=== PATIENT | female | born 1960 | race Caucasian/White ===

== ENCOUNTER 2020-01-26 14:14 | Inpatient (IN) | payer MEDICARE, BC ==
[~2020-01-26] VITALS: Ht 170.2 cm; Wt 68.0 kg
--- NOTE | 2020-01-26 15:01 | NUR ---
BIBS TO ER BED 12. AAOX4. NOT IN RESP DISTRESS. AMBULATORY. CAME IN FOR FEELING DEPRESSED ABOUT HER MOTHER'S PASSING BACK IN OCTOBER. SINCE THEN SHE FEELS LOST. PT WISHES TO BE LIKE HER MOTHER BUT DENIES SUICIDAL NOR HOMICIDAL IDEATION. PT WANT OTHER TO KILL HER, SHE WANTS TO RECEIVED MEDICATION TO "PUT HER AWAY". WAS AT THE BEDSIDE FOR EVAL. ORDERS RECEIVED NOTED AND CARRIED OUT
[2020-01-26 15:04] LABS: BASOPHILS # (AUTO) 0.1 /CMM (0.0-0.2); BASOPHILS % (AUTO) 0.9 % (0.0-2.0); EOSINOPHILS % (AUTO) 1.4 % (0.0-6.0); HEMATOCRIT 40 % (33-45); HEMOGLOBIN 13.5 g/dL (11.5-14.8); LYMPHOCYTES # (AUTO) 3.8 /CMM (0.8-4.8); LYMPHOCYTES % (AUTO) 50.9 % (20.0-44.0); MEAN CORPUSCULAR HGB CONC 34 g/dl (31.0-36.0); MEAN CORPUSCULAR VOLUME 90 fL (82-100); MONOCYTES # (AUTO) 0.5 /CMM (0.1-1.30); MONOCYTES % (AUTO) 6.7 % (2.0-12.0); NEUTROPHILS % (AUTO) 40.1 % (43.0-81.0); PLATELET COUNT (AUTO) 232 /CMM (150-450); RED BLOOD CELL COUNT(AUTO) 4.48 MIL/uL (4.0-5.2); WHITE BLOOD COUNT (AUTO) 7.4 K/uL (4.3-11.0)
[2020-01-26 15:11] LABS: CALCIUM, SERUM 9.1 mg/dL (8.5-10.1); CARBON DIOXIDE 28 mmol/L (21-32); CHLORIDE 102 mmol/L (98-107); GLUCOSE 146 mg/dL (74-106); POTASSIUM 3.6 mmol/L (3.5-5.1); SODIUM SERUM 137 mmol/L (136-145); UREA NITROGEN, BLOOD 17 mg/dL (7-18)
[2020-01-26 15:16] LABS: ALANINE AMINOTRANSFERASE 25 U/L (12-78); ALBUMIN 3.8 g/dL (3.4-5.0); ALCOHOL, BLOOD < 3 mg/dL (0-0); ALKALINE PHOSPHATASE 62 U/L (46-116); ASPARTATE AMINOTRANSFERASE 17 U/L (15-37); BILIRUBIN,DIRECT 0.1 mg/dL (0.0-0.2); BILIRUBIN,TOTAL 0.5 mg/dL (0.2-1.0); SALICYLATE 4.7 mg/dL (2.8-20.0); TOTAL PROTEIN, SERUM 8.2 g/dL (6.4-8.2)
[2020-01-26 15:21] LABS: ACETAMINOPHEN < 2 ug/ml (10-30)
--- NOTE | 2020-01-26 15:29 | NUR ---
CALLED FOR [facility] [phone]
[2020-01-26 15:36] LABS: APPEARANCE,URINE HAZY (CLEAR); BILIRUBIN,URINE SMALL (NEGATIVE); BLOOD, URINE Trace-intact Ery/uL (NEGATIVE); COLOR,URINE Yellow (YELLOW); KETONES,URINE Trace (NEGATIVE); LEUKOCYTE ESTERASE ,URINE Negative (NEGATIVE); NITRITE, URINE Negative (NEGATIVE); PH,URINE 6.5 (5.0-8.0); PROTEIN,URINE Negative (NEGATIVE); UGLUCOSE Negative (NEGATIVE)
--- NOTE | 2020-01-26 15:46 | NUR ---
SW CONSULT: Director Nicu reviewed pts chart prior to conducting social work consult for suicidal ideation. JOHN met with pt at bedside. Pt was alert and oriented, pleasant, and very engaging with SW. Pt reported she was brought in by her daughter due to increasing symptoms of depression, anxiety, and ongoing suicidal ideation. Pt reported the suicidal ideation onset was late October 2019, when her mother in her arms. Pt reported this loss has exacerbated her symptoms of depression and anxiety, and she feels completely lost, and needs helps. Pt reported she currently follows a psychotropic medication regimen of Zoloft and Klonopin PRN for anxiety, but does not feel the Zoloft is effective. Pt reported she has met with a therapist via video call, but does not feel that it is effective either. Pt reported she was previously admitted to [facility] in [place] on a voluntary admission in July 2019, but signed herself out because she felt like she was wrongly diagnosed with Bipolar disorder. Pt denied any history of drug or alcohol use. Pt reported she lives alone in [place] but came to the [facility] because her daughter lives in [place], and she is her main support. JOHN conducted the [place]-Suicide Severity Rating Scale to screen the pt for suicidal ideation. The pt scored high risk, and endorsed suicidal ideation to SW with a plan of overdosing on narcotic pain medication(s) at home. Pt reported she does not feel safe going home and would like to be voluntary admitted to [facility] GPS unit for treatment. JOHN contacted liquid sugar fortifier, Erica to consult and initiate the process for voluntary GPS admission. Director Nicu provided active listening and emotional support to the pt. JOHN contacted ER Admitting (ext. [phone]) to verify the pt's benefits; pt is benefited with Medicare and has hospital days. JOHN and GPS predatory animal trapperJenny GUNTER presented the voluntary admission form for psychiatric treatment, per Erica's request. LYRIC Alvarado assessed the pt's orientation and her understanding of voluntary psychiatric admission. Pt reported understanding and signed the form. LYRIC Alvarado took the form to the GPS unit to initiate the transfer and requested the pt be sent up after 1800. Per the pt's request, JOHN contacted pt's daughter, Carmel ([phone]) to update her on her mother's status and provided the [facility] GPS unit phone number. Aforementioned information endorsed to Erica and Israel Harrell.
[2020-01-26 15:47] LABS: BACTERIA,URINE Moderate /HPF (None Seen); SQUAMOUS EPITHELIAL CELL,UR Moderate /HPF (None Seen); WBC,URINE 0-2 /HPF (0-3)
--- NOTE | 2020-01-26 16:24 | NUR ---
PT CAN GO TO GPS BUT CHARGE NURSE @ GPS ASKED FOR PT TO GO UP AFTER 6PM.
--- NOTE | 2020-01-26 16:26 | NUR ---
GPS BED REQUESTED.
--- NOTE | 2020-01-26 16:34 | NUR ---
ROOM ASSIGNMENT: 216-A [facility]
[2020-01-26] MEDS ORDERED: CHOL20004 MT (16:42)
[2020-01-26] MEDS ORDERED: FAMO20TA8 MT (16:42)
[2020-01-26] MEDS ORDERED: CLON0.252 MT (16:42)
[2020-01-26] MEDS ORDERED: SERT50TA MT (16:42)
[2020-01-26] MEDS ORDERED: LEVO50TA PO (16:42)
--- NOTE | 2020-01-26 17:10 | NUR ---
SUBMITTED MOVE SHEET AND CALLED FOR GPS BED.
--- NOTE | 2020-01-26 17:30 | NUR ---
REPORT GIVEN TO LYRIC LUCIA FOR [facility]
[2020-01-26] MEDS ORDERED: FAMOTIDINE (20 MG) 20 MG TABLET PO PRN (18:00)
--- NOTE | 2020-01-26 18:55 | NUR ---
PT TRANSPORTED TO UNIT ON WHEELCHAIR WITH EMT AT BEDSIDE. PT IS IN STABLE CONDITION.
--- NOTE | 2020-01-26 19:00 | NUR ---
GPS MEDICAL SCRIBE NOTES: ADMITTED 59 Y/O FEMALE. PT ADMITTED FROM [facility] ER TO [facility] GPS UNIT ON A VOLUNTARY HOLD. PT CAME IN FOR FEELING DEPRESSED ABOUT HER MOTHER'S PASSING BACK IN OCTOBER. SINCE THEN SHE FEELS LOST. PT WISHES TO BE LIKE HER MOTHER BUT DENIES SUICIDAL NOR HOMICIDAL IDEATION. PT WANT OTHERS TO KILL HER, SHE WANTS TO RECEIVE MEDICATION TO "PUT HER AWAY". UPON FACE TO FACE ASSESSMENT, PT IS ALERT ORIENTATED X4, COOPERATIVE, ANXIOUS, DEPRESSED, NEEDY, MOURNS OVER HER MOTHERS , CRYING AT TIMES, AND SAD. WHEN ASKED PT THE REASON SHE IS HERE, PT STATED, "MY MOTHER IN OCTOBER" PT REFUSED TO SIGN CONSENT PAPERS. ENVIRONMENTAL SAFETY CHECK DONE Q15MIN. ENCOURAGE TO VERBALIZE THOUGHTS AND FEELINGS WITH STAFF. ORIENTED TO THE UNIT. NURSING ASSESSMENT DONE. BODY ASSESSMENT CHECKED SKIN CLEAR AND INTACT. PT STATED THAT SHE ALREADY CALLED HER DAUGHTER CHARU ABOUT HER ADMISSION AND REFUSES TO LET STAFF CALL DAUGHTER NOTIFIED MD OF PTS ADMISSION. TOOK PT INITIAL BLOOD SUGAR CHECK. PICTURE TAKEN OF PTS FACE. PICTURE PUT IN CHART. PROVIDED PT W/ HANDBOOK AND MED GUIDE. NO S.S OF RESP DISTRESS. BREATHING EVEN AND UNLABORED. NO S/S OF PAIN AT THIS TIME. CONTINUE TO MONITOR.
[2020-01-26] MEDS ORDERED: LORAZEPAM 0.5 MG TABLET PO PRN (20:00)
[2020-01-26] MEDS ORDERED: MAGNESIUM HYDROXIDE 30 ML UDC PO PRN (20:00)
[2020-01-26] MEDS ORDERED: ACETAMINOPHEN 325 MG TABLET PO PRN (20:00)
[2020-01-26] MEDS ORDERED: TEMAZEPAM 7.5 MG CAPSULE PO PRN (20:00)
[2020-01-26] MEDS ORDERED: BLOOD SUGAR DIAGNOSTIC 1 EACH STRIP IN ONE (20:00)
[2020-01-26] MEDS ORDERED: MAG HYDROX/AL HYDROX/SIMETH 30 ML UDC PO PRN (20:00)
[2020-01-26 20:29] VITALS: BP 111/63
--- NOTE | 2020-01-26 22:28 | NUR ---
GPS RN NOTES: INSOMNIA PT REQUESTED SLEEPING MEDICATION. OFFERED RESTORIL 7.5 MG PO PRN ORDERED. PT AGREED AND TOLERATED MEDICATION WELL. CONTINUE TO MONITOR.
--- NOTE | 2020-01-27 00:29 | NUR ---
GPS RN NOTES: NOTIFIED NURSING HEMP FIBER TAKER OFF [facility] REGARDING COVID TESTING. STATED NO INDICATION OR SYMPTOMS NOTED. PER PT CAME FROM HOME. NO FEVER, NO COUGHING, NO SOB, AND NO RESP DISTRESS. CONTINUE TO MONITOR.
[2020-01-27 07:22] LABS: ALBUMIN 3.3 g/dL (3.4-5.0); BILIRUBIN,TOTAL 0.5 mg/dL (0.2-1.0); CALCIUM, SERUM 8.6 mg/dL (8.5-10.1); CREATININE 0.7 mg/dL (0.6-1.3); POTASSIUM 3.7 mmol/L (3.5-5.1); TOTAL PROTEIN, SERUM 7.7 g/dL (6.4-8.2)
[2020-01-27] MEDS ORDERED: LEVOTHYROXINE SODIUM 50 MCG TABLET PO SCH (07:30)
[2020-01-27 08:00] VITALS: BP 110/78
[2020-01-27] MEDS: CHOLECALCIFEROL 1,000 UNIT TABLET (VIT D3) PO SCH (08:35)
[2020-01-27] MEDS ORDERED: NICOTINE PATCH (14MG) 14 MG PATCH.TD24 TD SCH (09:00)
--- NOTE | 2020-01-27 12:05 | NUR ---
Family Contact: SW called the pts daughter, Carmel ([phone]), and left a voicemail stating that the SW would like to discuss the pts treatment and discharge plan.
--- NOTE | 2020-01-27 12:50 | NUR ---
Family Contact: SW called the pts daughter, Carmel ([phone]), and discussed the pts initial treatment and discharge plan. SW inquired about the pts safety at home and the pts daughter stated that the pt does not like being alone. JOHN suggested that the pt could benefit from living in an Independent Living/Assisted Living facility. JOHN stated that she will speak to the pt about this option and plan her discharge accordingly.
--- NOTE | 2020-01-27 14:15 | NUR ---
Initial Discharge Plan: Pt currently resides at her home alone located at [address] [place] [address]; ([phone]). Per pt, she would like to return to her home and go on a vacation. JOHN will work with the pt and the MD regarding appropriate discharge planning. SW will form a safe and proper discharge.
[2020-01-27] MEDS: LEVOTHYROXINE SODIUM 50 MCG TABLET PO SCH (16:00)
[2020-01-27] MEDS ORDERED: DULOXETINE HCL 30 MG CAPSULE.DR PO SCH (17:00)
--- NOTE | 2020-01-27 19:54 | NUR ---
GPS RN NOTES: CONSTIPATION PT C/O OF FEELING CONSTIPATED. OFFERED MOM 30 ML PRN ORDERED. PT AGREED ANDD TOLERATED MEDICATION WELL. CONTINUE TO MONITOR.
[2020-01-27 20:00] VITALS: BP 106/70
[2020-01-27] MEDS: busPIRone 5 MG TABLET PO SCH (20:23)
--- NOTE | 2020-01-27 22:16 | NUR ---
GPS RN NOTES: HEADACHE PT C/O OF 10/06 HEADACHE. PT REQUESTED TYLENOL. OFFERED TYLENOL 650 MG PO PRN ORDERED. PT AGREED AND TOLERATED MEDICATION WELL. CONTINUE TO MONITOR.
[2020-01-28] MEDS: LEVOTHYROXINE SODIUM 50 MCG TABLET PO SCH (06:30)
[2020-01-28 08:00] VITALS: BP 102/56
[2020-01-28] MEDS: CHOLECALCIFEROL 1,000 UNIT TABLET (VIT D3) PO SCH (08:57)
[2020-01-28] MEDS: busPIRone 5 MG TABLET PO SCH (08:57)
[2020-01-28] MEDS ORDERED: NICOTINE PATCH (21MG) 21 MG PATCH.TD24 TD SCH (09:00)
[2020-01-28] MEDS ORDERED: NICOTINE PATCH (14MG) 14 MG PATCH.TD24 TD SCH (09:00)
--- NOTE | 2020-01-28 13:58 | NUR ---
Family Contact: SW called the pts daughter, Carmel ([phone]), and left a voicemail stating that the pt is going to be discharged within the next hour because she does not meet inpatient criteria.
--- NOTE | 2020-01-28 14:00 | NUR ---
RN-CO: Patient denied suicidal and homicidal ideation. Denied auditory and visual hallucination. NO acute distress noted. She was seen and examined by Dr Angulo with order to discharge her noted and carried out. She is self care, alert and oriented x4 and able to make decision for herself. She was also medically cleared by Dr Faulkner to be discharge.
--- NOTE | 2020-01-28 14:09 | NUR ---
Discharge Note: Pt was discharged to her home located at [address] [place] [address]; ([phone]). Pt was picked up her daughter, Carmel ([phone]), around 3pm. Upon discharge, the pt appeared to be in a euthymic mood and presents with a calm affect. Pt appears to be alert and oriented x4 (time, place, self and situation). Pt appears to be well groomed and appropriately dressed. Pt is ambulatory and appears to have fair physical health. Pt denied visual/auditory hallucinations and denied suicidal/homicidal ideation. Pt was provided with smoking cessation referrals at the time of discharge. Pt will be under the care of psychiatrist, Dr. Alicja Angulo, located at [address] [address] and group work program aide, Dr. Ayden Yañez, located at [address] [facility] [address], [place] [address]; .
--- NOTE | 2020-01-28 14:19 | NUR ---
Called Dr. Faulkner and left message regarding patient discharge and home medications.
--- NOTE | 2020-01-28 15:00 | NUR ---
Given discharge instruction include metal pickling equipment operator prescription meds and side effect, Patient verbally understand. Pt left room accompanied by staff ti the private car, denies pain or any discomfort, in stable condition.
== END 2020-01-28 15:00 | disposition home or self-care (01) | DRG 885 ==
LOC: ER 14:25 → GPS 17:33
PROVIDERS: ADMIT Psychiatry & Neurology Psychosomatic Medicine; ATTEND Student in an Organized Health Care Education/Training Program
DX: F33.2 Major depressive disorder, recurrent severe without psychotic features (principal); R45.851 Suicidal ideations; G35 Multiple sclerosis; F41.9 Anxiety disorder, unspecified; Z91.041 Radiographic dye allergy status; R27.8 Other lack of coordination; Z91.81 History of falling; F41.0 Panic disorder [episodic paroxysmal anxiety]; I95.9 Hypotension, unspecified; Z91.5 Personal history of self-harm
CPT/HCPCS: 36415; 80048-TC; 80053-TC; 80061-TC; 80076-TC; 80305; 81000-TC; 82962-TC; 84443-TC; 85025-TC; 87086-TC; 97116-TC; 97530-TC; G0480